=== PATIENT | male | born 1995 | race Caucasian/White ===

== ENCOUNTER 2024-10-20 08:54 | Outpatient (REF) | payer MEDICAID, SELFPAY ==
--- OUTSIDE RECORDS SUMMARY | 2024-10-20 09:13 | XMS_ITS ---
Author Name [facility] Organization Unknown Care Team Organization Name Specialty Phone Email Start Date End Da te [employer] Insurance 11/15/2021 0 12/13/2023
--- NOTE | 2024-10-20 12:28 | MHC.AU.HA1 ---
Hearing Aid Evaluation Date of Visit: 10/20/24 Historical Information: Description of Hearing: Borderline normal to 1kHz sloping to severe sensorineural hearing loss left ear. Current personal amplification information, if applicable: None Summary: Aleksander arrives with audiogram and medical clearance from ENT. He reports sudden hearing loss left ear in July with some recovery following transtympanic steroid injection. He reports the hearing in his right ear is normal. He reports ENT has recommended a hearing aid to help with hearing and tinnitus. Reviewed options. Discussed benefits and limitations of amplification, adjustment to amplification. Recommended RITE style hearing aid. Aleksander selected rechargeable. Hearing Aid Prescription: Based on the individual?s shared listening needs, communication environments, dexterity, desire for connectivity, and personal preferences, the following prescription for amplification has been made: Left ear: Make, Model, Color: Phonak Infinio I 70 graphite Battery Size: Rechargeable Field Sales Trainer/Slim Tube: 1 M Type of Earmold/Dome/CShell/SlimTip: sm vented Plan of Care: Patient wishes to purchase hearing aids as prescribed Action Taken/Action Needed: Hearing Instrument Fitting to be scheduled when materials arrive Primary Diagnosis: H90.42 SNHL Unilateral Left Side, W/Unrestricted Contralateral Hearing Signature: Provider: Hola Anderson, CCC-A
== END 2024-10-20 08:55 | disposition home or self-care (01) ==
LOC: HO.HAP 08:54
PROVIDERS: Visit Provider Otolaryngology
DX: Z46.1 Encounter for fitting and adjustment of hearing aid (principal); H90.42 Sensorineural hearing loss, unilateral, left ear, with unrestricted hearing on the contralateral side
CPT/HCPCS: 92590

== ENCOUNTER 2024-11-15 13:32 | Outpatient (REF) | payer MEDICAID, SELFPAY ==
--- OUTSIDE RECORDS SUMMARY | 2024-11-15 14:08 | XMS_ITS | Clinical Summary ---
Author Organization [facility] Address [address] [address] Phone Care Team Providers Care Cosmetics Presser Name Role Phone Jb Edwards Primary Care Prov ider Allergies No known active allergies Medications methylPREDNISol one (MEDROL DOSEPACK) 4 mg tablet follow package directions 21 tablet 5 Active naproxen (NAPROSYN) 500 MG tablet Take 1 tablet (500 mg total) by mouth 2 (two) times a day with meals. 20 tablet 5 Active Active Problems No known active problems Social History Tobacco Use Types Packs/Day Years Used Date Smoking Tobacco: Never Smokeless Tobacco: Never Tobacco Cessation:Counseling Given: Not Answered Alcohol Use Standard Drinks/Week Comments Yes 0 (1 standard drink = 0.6 oz pur e alcohol) Education Answer Date Recorded Are you interested in more education? Not on mayo e 08/20/2022 Are you concerned about learning? Not on file 08/20/2022 No 08/20/2022 No 08/20/2022 Digital Access Answer Date Recorded No 09/19/2022 No 09/19/2022 Reliable internet access at home? Not on file 09/19/2022 Device with a working camera? Not on file Intimate Partner Violence Answer Date R ecorded Are you denied basic needs s uch as food, clothing, or medical care? No 07/22/2024 In the past 12 months have y ou been in a relationship with a person who hurts, threatens, or tries to control you? No 07/22/2024 Are you denied basic needs s uch as food, clothing, or medical care? No 07/22/2024 In the past 12 months have y ou been in a relationship with a person who hurts, threatens, or tries to control you? No 07/22/2024 Sex and Gender Information Value Date Recorded Sex Assigned at Male 06/03/2022 12:04 AM EST Legal Sex Male 11:01 PM EST Gender Identity Male 06/03/2022 12:04 AM EST Sexual Orientation Lesbian or Guerin 06/03/2022 12 :04 AM EST Last Filed Vital Signs Vital Sign Reading Time Taken Comments Blood Pressure 110/74 07/22/2024 9:50 PM EDT Pulse 74 07/22/2024 9:50 PM EDT Temperature 36.7 C (98 F) 07/22/2024 9:50 PM EDT Respiratory Rate 20 07/22/2024 9:50 PM EDT Oxygen Saturation 98% 07/22/2024 9:50 PM EDT Inhaled Oxygen Concentration - - Weight 53.5 kg (118 lb) 07/22/2024 6:38 PM EDT Height 175.3 cm (5' 9 ) 07/22/2024 6:38 PM EDT Body Mass Index 17.43 07/22/2024 6:38 PM EDT Plan of Treatment Health Maintenance Due Date Last Done Comments DEPRESSION SCREENING 2009 HPV VACCINES (1 - Male 3-dos e series) 2012 HIV ONE-TIME SCREENING (18-6 5 YEARS) 12/07/2015 SMOKING STATUS SCREENING (On ce After 26 Yrs) 12/07/2023 COVID-19 VACCINE ( - 2023-2 5 season) 2023 Adult Td,Tdap Booster 10/04/2033 10/05/2023 HEPATITIS C SCREENING Completed 10/05/2023 , 07/22/2022, 06/12/2020 HEPATITIS A VACCINES Aged Out No long er eligible based on patient's age to complete this topic HIB VACCINES Aged Out No longer eligi ble based on patient's age to complete this topic MENINGOCOCCAL VACCINES (ACWY) Aged Out No longer eligible based on patient's age to complete this topic MENINGOCOCCAL VACCINES (B) Aged Out N o longer eligible based on patient's age to complete this topic PNEUMOCOCCAL VACCINES (0-49 years) Aged Out No longer eligible b ased on patient's age to complete this topic Medical Devices Not on file Insurance C3 ACO C3 ACO C3 ACO [facility] C3 ACO C3 ACO Member Subscriber Plan / Payer (Ef fective 2024-Present) Name:Aleksander Horvath Relation to Subscriber:Self Name:Aleksander Horvath Payer ID:[id number] Group ID:Not on file Type:Medicaid Address: [place] [address] [place] [address] C3 ACO C3 ACO Member Subscriber Plan / Payer (Ef fective 2024-Present) Name:Aleksander Horvath Relation to Subscriber:Self Name:Aleksander Horvath Payer ID:[id number] Group ID:Not on file Type:Medicaid Address: [place] [address] [place] [address] C3 ACO C3 ACO C3 ACO C3 ACO C3 ACO Care Teams Cosmetics Presser Relationship Specialty Start Date End Date Jb Edwards FNP [address] [place] [address] PCP - General Nurse Practitioner 08/14/22 Additional Source Comments The information contained in this document represents components of the legal health record. It is not the complete legal health record.[facility]
--- OUTSIDE RECORDS SUMMARY | 2024-11-15 14:08 | XMS_ITS | Data Portability ---
Author Organization [facility] Address [address] [address] Care Team Providers Care Hoop Flaring Machine Operator Helper Name Role Phone SU FRANKOR Primary Care Provider Assessment Encounter Date Assessment Date Assessment LastModified by Organization Details LastModified Time 08/08/2024 08/08/2024 We discussed louisa t the patient has experienced a sudden left-sided sensorineural hearing loss. I explained that this is idiopathic but thought to be due to a virally-mediated inflammatory phenomenon. We discussed that our recommended treatment plan typically includes a two week high dose oral prednisone taper and a series of 3 intratympanic dexamethasone injections. Side effects of oral steroids were discussed, including GI upset, irritability, and sleep disturbance. We discussed the rare complication of aseptic necrosis of the hip. An information sheet regarding oral steroids was given to the patient for their review at home. A prescription for prednisone 60 mg per day followed by a five-day taper was sent to the pharmacy. I explained the approximate 5% risk of persistent tympanic membrane perforation associated with IT injections. The patient expressed desire to proceed and the first IT dexamethasone injection which was done in the office today. The patient should follow water precautions. Patient will follow up in 1 week and 2 weeks for subsequent IT dexamethasone injections. In the meantime I will order MRI scan of the brain and internal auditory canals to rule out retrocochlear pathology as the cause of the sudden hearing loss. CT angio head/ neck without contrast on 08/07/2024 demonstrated extensive paranasal sinus disease, with multifocal layering fluid. Patient will complete 7-day Augmentin course. [email or web address] Not available 08/08/2024 15:14:59 08/15/2024 08/15/2024 Patient has tolerated second of 3 planned left intratympanic injections today. Patient will maintain dry ear precautions. Patient will follow-up in 1 week for third and final planned injection. We will review MRI results as they come available. [email or web address] Not available 08/14/2024 17:05:17 08/23/2024 08/23/2024 Patient has tolerated third of 3 planned left intratympanic injections today. Patient will maintain dry ear precautions. Patient will follow-up in 1 month for posttreatment audiometric testing. MRI scan results reviewed with patient which showed no signs of retrocochlear pathology. [email or web address] Not available 08/22/2024 19:00:57 09/28/2024 09/28/2024 The hearing left ear has improved dramatically following oral and intratympanic steroid therapy for treatment of sudden sensorineural hearing loss. His low-frequency hearing has normalized but he still has mid and high-frequency sensorineural hearing loss. Fortunately his speech discrimination is well-maintained. No additional steroid therapy recommended. The patient would benefit significantly from left-sided amplification. There is enough hearing loss to affect day-to-day hearing performance. We discussed in detail the pros and cons of amplification (hearing aids). We discussed the connection between untreated hearing loss and increased risk of dementia, falling and accidents. After full discussion, the patient expressed interest in learning more about amplification options. Accordingly I have provided a copy of the audiogram, a list of [facility] hearing aid providers, and medical clearance for amplification so the patient can pursue this at their convenience. Patient is medically cleared for amplification bilaterally. [email or web address] Not available 09/28/2024 15:38:12 Plan of Treatment Reminders Order Date Submit Date Provider Last Modified By Organization Details Last Modified Time Details Appointments None recorded. Lab None recorded. Referral None recorded. Procedures None recorded. Surgeries None recorded. Imaging MRI, brain + internal auditory canal, w/wo contrast - MRI, BRAIN + INTERNAL AUDITORY CANAL, W/WO CONTRAST 2024 025 [facility] ([facility] [address], [place], [address], 16:40:01 Medication Orders prednisone 10 mg tablet 2024 025 [id number], [address] [facility], [place], [place], [phone], 15:22:03 Patient TargetsNo targets recorded. Patient InstructionsNo instructions recorded. Reason for Referral None Reported. Results Created Date Observation Date Name Description Value Unit Range Abnormal Flag Note LastModifiedBy Organization Detail LastModifiedTime 08/10/19 audio gram No observ ation record ed. BARCODE Not Available 2024 11:12:34 08/16/19 25 08/08/2024 CT, head + neck, w/wo contr ast No observ ation record ed. [email or web address] Not Available 07/26 15:35:09 08/21/19 25 08/17/2024 MRI, brain + inter nal audit ory canal , w/wo contr ast No observ ation record ed. [address] [facility] ([facility]) [address] [place], [address], 08/21/2024 12:00:51 09/30/19 25 audio gram No observ ation record ed. BARCODE Not Available 2024 10:24:55 Result Notes None recorded. Problems Name Problem SNOMED Code Status Onset Date Resolution Date Notes Provider Name and Address Organization Details Recorded Time Sensorineur al hearing loss 02899361 Active 2024 ZOYA NAGEL [address] [address], [place], [address], [facility] 5 13:43:08 Sensorineur al hearing loss in left ear 4431446425821 9 Active 2024 ULICES ALDANA PA-C [address] [address], [place], [address], [facility] - [facility] 5 14:32:47 Tinnitus of left ear 7396630328160 Active 2024 LYN BELL MD [address] [address], [place], [address], [facility] - [facility] 5 15:32:14 Sudden idiopathic hearing loss 072697934 Active 2024 LYN BELL MD [address] [facility], [address] [facility], [place], [address], [place] [facility] 16:25:28 Acute sinusitis 45299682 Active 2024 LYN BELL MD [address] [facility] [address] [facility], [place], [address], [place] [facility] 16:26:05 Problem Notes None recorded. Procedures Surgical History Date Name Laterality Status Provider Name and Address Organization Details Recorded Time 09/29/19 25 Air & Speech Audio with Tymps - 06391, 59256 & 41593 completed DERREK STUART, AUD [address] [facility],[address], [address], [place] - [facility] 09/28/2024 15:10:30 08/24/19 25 Intratympanic injection subsequent completed LYN BELL MD 100 [facility],[address], [address], [facility] 08/22/2024 19:00:48 08/16/19 25 Intratympanic injection subsequent completed LYN BELL MD [address] [facility],[address], [address], [facility] 08/15/2024 08:50:01 08/09/19 25 Comp Audio with Tymps - 04059 & 08996 completed NITIN GOMEZ, ZOYA [address] [facility],[address], [address], [facility] 08/08/2024 13:42:17 08/09/19 25 Intratympanic injection initial completed LYN BELL MD 100 [facility],[address], [address], [facility] 08/08/2024 16:26:50 Imaging Results None recorded. Procedure Notes None recorded. Medical Equipment None Reported. Allergies No known drug allergies Medications Name Sig Start Date Stop Date Status Note LastModified by Organization Details LastModified Time prednisone 10 mg tablet Take 6 tabs once a day on days 8-9, then take 5 tabs on day 10, 4 tabs on day 11, 3 tabs on day 12, 2 tabs on day 13, and 1 tab on day 14 active Not Available Not Available No t Available prednisone 20 mg tablet 2024 active Not Available Not Available Not Avai lable methylpredn isolone 4 mg tablets in a dose pack FOLLOW PACKAGE DIRECTION S 08/15 completed Not Available Not Available Not Available fluticasone propionate 50 mcg/actuati on nasal spray,suspe nsion USE 1 SPRAY IN EACH NOSTRIL ONCE DAILY active Not Available Not Available No t Available naproxen 500 mg tablet 2024 active Not Available Not Available Not Avai lable amoxicillin 875 mg-potassiu m clavulanate 125 mg tablet TAKE 1 TABLET BY MOUTH EVERY 12 HOURS FOR 7 DAYS 08/15 completed Not Available Not Available Not Available Wal-itin D 10 mg-240 mg tablet,exte nded release TAKE 1 TABLET BY MOUTH DAILY active Not Available Not Available No t Available Vitals Date Recorded Body height Body mass index (BMI) Body weight Provider Name and Address Organization Details Last Updated DateTime 08/08/2024 175.26 cm 17.7 kg/m2 25102.08 g [place] [facility] 08/08/2024 13:53:00 Date Recorded Body height Body weight Provider Name and Address Organization Details Last Updated DateTime 08/15/2024 175.26 cm 64090.08 g Gisell Acosta [place] [facility] 08/15/2024 08:36:36 Date Recorded Body height Provider Name an d Address Organization Details Last Updated DateTime 09/28/2024 175.26 cm [facility] 09/28/2024 15:24:34 Social History None recorded. Functional Status Question Answer Note LastModified by Organizat ion Details LastModified Time What is your level of alcohol consumption? Occasional ccomi Information not available 08/08/2024 Mental Status None recorded. Family History Nothing Reported. Medical History No medical history recorded. Past Encounters Encounter ID Performer Location Encounter Start Date Encounter Closed Date Diagnosis/Indication Diagnosis SNOMED-CT Code Diagnosis ICD10 Code Diagnosis Note [id number] LYN BELL MD [facility] [address] [address] 08/08/2024 13:21:17 08/08/2024 15:25:54 Sensorineural hearing loss in left ear [id number] 9109 H90.42 Audiologic al evaluation results:Ri ght ear:Normal hearing with excellent word recognitio n.Left ear:Severe sloping to profound sensorineu ral hearing loss with no measurable word recognitio n. Tympanomet ry:Right Ear:Type ALeft Ear:Type A Tinnitus of left ear 864 5169714 106 H93.12 Sudden idi opathic hearing loss 374524773 H91.22 Acute sinusitis 91802556 J01.90 [id number] LYN BELL MD [facility] [address] [address] 08/15/2024 08:30:44 08/15/2024 09:09:35 Sensorineural hearing loss in left ear [id number] 9109 H90.42 Sudden idi opathic hearing loss 343109173 H91.22 [id number] LYN BELL MD [facility] [address] [address] 08/23/2024 08:34:25 08/23/2024 09:23:20 Sensorineural hearing loss in left ear 1580969859 9109 H90.42 Sudden idi opathic hearing loss 983101844 H91.22 [id number] LYN BELL MD [facility] [address] [address] 09/28/2024 15:01:09 09/28/2024 16:18:11 Sudden idiopathic hearing loss 238666067 H91.22 Sensorineu ral hearing loss in left ear 5718190174 9109 H90.42 Left Ear:Normal hearing through 1K Hz sloping to a severe SNHL with excellent speech discrimina tion.Type As tympanogra m. Tinnitus of left ear 902 0839018 106 H93.12 Today we discussed the pathophysi ology of tinnitus and the absence of consistent ly successful pharmacolo gic treatments for tinnitus. We discussed masking strategies to decrease awareness of the tinnitus, including using a white noise machine, music, or television . We discussed how exposure to loud noise can worsen tinnitus so I recommende d hearing protection . We also discussed other ways to potentiall y help reduce awareness of tinnitus including avoidance of caffeine, salty meals and NSAIDs.In light of the underlying sensorineu ral hearing loss, the patient may want to further consider amplificat ion. This would not only help with hearing, but can also be instrument al in acting as a masking source to help reduce the awareness of tinnitus. Health Concerns Section Related Observation LastModified by Organization Detai ls LastModified Time None Recorded Concern Status LastModified by Organization Details LastModified Time None Recorded Advance Directives Directive None Recorded Payers Insurance Date Sequence Insurance Name Policy Number Policy Kelley Covered Member ID Kelley Member ID Guarantor Name 09/28/2024 1 [place] [facility] SathishDennis Horvath [id number] Aleksander Horvath Notes Date Note Type Note Provider Name and Address Organization Details Recorded Time 08/08/2024 text/html 28yo male presen ts for evaluation of left-sided sudden hearing loss. Left ear pain and ringing started 4 weeks ago. Sudden hearing loss occurred 6 days ago with associated nausea and worsening in ringing. CT angio head/ neck without contrast on 08/07/2024 demonstrated extensive paranasal sinus disease, with multifocal layering fluid. He started oral Augmentin and oral prednisone today. Ear pain and nausea resolved. He endorses persistent left ringing and sound of water running. Patient suspects underlying environmental allergies. He started flonase and oral antihistamine. No prior ear procedures. No family history of hearing loss. LYN BELL MD [address] [place] [address], [address], [facility] 08/08/2024 16:27:52 08/15/2024 text/html Patient with a l eft sudden sensorineural hearing loss who is undergoing a series of 3 intratympanic dexamethasone injections. Patient comes in today for second of 3 planned intratympanic injections. Patient notes no pain or discharge from the ear. Patient has noticed no improvement in the hearing. Tolerating oral steroid regimen without significant side effects.MRI scan is ordered and is pending. This is scheduled for August 17. LYN BELL MD [address] [facility],[address] [address], [place], [address], [facility] 08/15/2024 08:50:58 08/23/2024 text/html Patient with a l eft sudden sensorineural hearing loss who is undergoing a series of 3 intratympanic dexamethasone injections. Patient comes in today for third of 3 planned intratympanic injections. Patient notes no pain or discharge from the ear. Patient has noticed no improvement in the hearing. Tolerating oral steroid regimen without significant side effects. MRI scan has been completed and is available for review. LYN BELL MD [address] [facility],[address], [address], [facility] 08/23/2024 09:02:26 09/28/2024 text/html Patient who suffered left sudden sensorineural hearing loss in July 2024. Patient underwent combination of oral and intratympanic steroid treatment. Patient returns today for follow-up audiometric testing to assess response to therapy. MRI negative. Patient reports some persistent hearing loss as well as chronic tinnitus in the left. LYN BELL MD [address] [facility],[address] [address], [place], [address], [facility] 09/28/2024 15:38:45
--- OUTSIDE RECORDS SUMMARY | 2024-11-15 14:08 | XMS_ITS | Clinical Summary ---
Author Organization [facility] Address [address] [place] [address] Phone Care Team Providers Care Snag Grinder Name Role Phone Physician, Pcp Unknown Primary Care Provider Lisa vailable Allergies No known active allergies Medications No known medications Active Problems No known active problems Social History Tobacco Use Types Packs/Day Years Used Date Smoking Tobacco: Never Assessed Sex and Gender Information Value Date Recorded Sex Assigned at Male 08/07/2024 9:33 AM EDT Legal Sex Male 8:13 PM EST Gender Identity Male 08/07/2024 9:33 AM EDT Sexual Orientation Choose not to disclose 2024 9:33 AM EDT Obstetrics History Last Filed Vital Signs Vital Sign Reading Time Taken Comments Blood Pressure 117/71 08/07/2024 1:09 PM EDT Pulse 72 08/07/2024 1:09 PM EDT Temperature 36.5 C (97.7 F) 08/07/2024 9:15 AM EDT Respiratory Rate 15 08/07/2024 1:09 PM EDT Oxygen Saturation 100% 08/07/2024 1:09 PM EDT Inhaled Oxygen Concentration - - Weight 53.5 kg (118 lb) 08/07/2024 9:15 AM EDT Height 175.3 cm (5' 9 ) 08/07/2024 9:15 AM EDT Body Mass Index 17.43 08/07/2024 9:15 AM EDT Plan of Treatment Health Maintenance Due Date Last Done Comments COVID-19 Vaccine ( season) 2023 10/05/2023, 01/15/2022, 12/26/2021, Additional history exists Depression Screening 04/26/2024 HIV Screening 08/07/2024 Social Influencers of Health Screening 08/07/2024 Influenza Vaccine (#1) 2024 , 06/12/2020, 06/19/2019, Additional history exists Cholesterol Screening (Lipid Panel) 10/04/2028 10/05/2023, 07/22/2022, 06/12/2020 DTaP,Tdap,and Td Vaccines (8 - Td or Tdap) 10/04/2033 10/05/2023, 10/18/2009, 12/12/2001, Additional history exists HIB Vaccines Completed 03/03/1999, 05/28, 03/26/1998, Additional history exists IPV Vaccines Completed 12/12/2001, 11/1998, 04/15/1998, Additional history exists MMR Vaccines Completed 12/12/2001, 12/19/1998 Varicella Vaccines Completed 10/18/2009, 12/19/1998 HPV Vaccines Completed 11/10/2012, 01/24, 11/13/2011 Meningococcal ACWY Vaccine Aged Out 12/27/2015, No longer eligible based on patient's age to complete this topic Hepatitis B Vaccines Completed 08/17/2016, 02/05/2016, 12/27/2015, Additional history exists Hepatitis C Screening Completed 10/05/2023, 021 Hepatitis A Vaccines Aged Out No long er eligible based on patient's age to complete this topic Meningococcal B Vaccine Aged Out No l onger eligible based on patient's age to complete this topic Pneumococcal Vaccine: Pediatrics (0 to 5 Years) and At-Risk Patients (6 to 49 Years) Aged Out No longer eligible based on patient's age to complete this topic RSV Immunization Patients Under 20 months Aged Out No longer eligible based on patient's age to complete this topic Insurance MEDICAID - [place] Care Teams Snag Grinder Relationship Specialty Start Date End Date Physician, Pcp Unknown PCP - General 08/07/24
--- NOTE | 2024-11-15 15:25 | MHC.AU.HA2 ---
Hearing Instrument Fitting- Adult Date of Visit: 11/15/24 Hearing Instruments Dispensed: Right Ear: Make, Model, Color, Serial Number: [id number] Left Ear: Make, Model, Color, Serial Number: Phonak Infinio I 70 graphite S#[id number] Mule Rider Repair Warranty: 11/22/2027 Mule Rider Loss and Damage Warranty: 11/22/2027 [facility] Service Plan: 11/15/2024 Battery Size: Rechargeable Rd Mechanical Engineer/Slim Tube: 1 M Earmold/Dome/CShell/SlimTip: sm vented Type of Wax Guard: Cerustop Summary of Fitting: Seen for hearing aid fitting. Fit with and oriented to Phonak Audeo I 70 R left ear. Verified to [facility] adult 5 targets. Ran feedback grain commodity manager. VC enabled and reviewed use. Counseled on adjustment to amplification. Reviewed charging, maintenance, precautions. Practiced insertion and removal. Good subjective comfort and benefit reported, noting his hearing feels more open, less muffled. Recommendations: Recommendations: A hearing instrument follow-up was scheduled. Diagnosis Code(s): Primary Diagnosis: H90.42 SNHL Unilateral Left Side, W/Unrestricted Contralateral Hearing Signature: Provider: Hola Anderson, [facility]
== END 2024-11-15 13:33 | disposition home or self-care (01) ==
LOC: HO.HAP 13:32
PROVIDERS: Visit Provider Otolaryngology
DX: Z46.1 Encounter for fitting and adjustment of hearing aid (principal); H90.42 Sensorineural hearing loss, unilateral, left ear, with unrestricted hearing on the contralateral side
CPT/HCPCS: V5011; V5020; V5241; V5257

== ENCOUNTER 2024-12-08 08:31 | Outpatient (REF) | payer MEDICAID, SELFPAY ==
--- OUTSIDE RECORDS SUMMARY | 2024-12-08 08:41 | XMS_ITS | Clinical Summary ---
Author Organization [facility] Address [address] [place] [address] Phone Care Team Providers Care Hop Strainer Name Role Phone Physician, Pcp Unknown Primary [...] topic Insurance MEDICAID - [place] Care Teams Hop Strainer Relationship Specialty Start Date End Date Physician, Pcp Unknown PCP - General 08/07/24
--- OUTSIDE RECORDS SUMMARY | 2024-12-08 08:41 | XMS_ITS | Clinical Summary ---
Author Organization [facility] Address [address] [address] Phone Care Team Providers Care Perlite Grinder Name Role Phone Jb Edwards Primary Care [...] Insurance C3 ACO C3 ACO C3 ACO [facility] C3 ACO C3 ACO Member Subscriber Plan / Payer (Ef fective 2024-Present) Name:Aleksander Horvath Relation to Subscriber:Self Name:Aleksander Horvath Payer ID:[id number] Group ID:Not on file Type:Medicaid Address: [place] [address] [place] [address] C3 ACO C3 ACO Member Subscriber Plan / Payer (Ef fective 2024-Present) Name:Aleksander Horvath Relation to Subscriber:Self Name:Aleksander Horvath Payer ID:[id number] Group ID:Not on file Type:Medicaid Address: [place] [address] [place] [address] C3 ACO C3 ACO C3 ACO C3 ACO C3 ACO Care Teams Perlite Grinder Relationship Specialty Start Date End Date Jb Edwards FNP [address] [place] [address] PCP - General Nurse Practitioner 08/14/22 Additional Source Comments The information contained in this document represents components of the legal health record. It is not the complete legal health record.[facility]
== END 2024-12-08 08:32 | disposition home or self-care (01) ==
LOC: HO.HAP 08:31
PROVIDERS: PCP Nurse Practitioner Family; Visit Provider Otolaryngology
DX: Z13.89 Encounter for screening for other disorder (principal)